=== PATIENT | male | born 1995 | race Caucasian/White ===

== ENCOUNTER 2019-06-19 18:12 | Emergency (ER) | payer MEDICAID, SELFPAY ==
[2019-06-19] MEDS ORDERED: Tobramycin Sulfate 0.3% Ophth Susp 5 ml Bottle ONE (18:24)
[2019-06-19] MEDS ORDERED: Tetracaine 0.5% OPHTH SOLN/PF 4 ML BOT ONE (18:24)
[2019-06-19] MEDS ORDERED: Fluorescein Opthalmic Strip ONE (18:24)
== END 2019-06-19 18:46 | disposition home or self-care (01) ==
LOC: BURERS 18:12
DX: S05.02XA Injury of conjunctiva and corneal abrasion without foreign body, left eye, initial encounter (principal); W22.8XXA Striking against or struck by other objects, initial encounter
CPT/HCPCS: 99283